=== PATIENT | male | born 1940 ===

== ENCOUNTER 2021-02-28 19:44 | Emergency (ER) | payer MEDICARE ==
[~2021-02-28 19:44] MED LIST: ASPIRIN EC81 MG PO; CRESTOR20 MG PO; FLOMAX0.4 MG PO; ISOSORBIDE DINI30 MG PO; ISOSORBIDE MONO30 MG PO; NORVASC10 MG PO; OMEPRAZOLE40 MG PO; PLAVIX75 MG PO; TOPROL XL 25MG25 MG PO
[2021-02-28 20:41] LABS: BASOPHIL 0.1 % (0-2); BILIRUBIN NEGATIVE (NEGATIVE); BLOOD NEGATIVE Ery/uL (NEGATIVE); CLARITY CLEAR (CLEAR); COLOR YELLOW (YELLOW); EOSINOPHIL 7.1 % (0-7); GLUCOSE (U) NORMAL (NORMAL); HCT 44.9 % (42.0-52.0); HGB 15.5 g/dl (13.2-18.0); LEUKOCYTES NEGATIVE Leu/uL (NEGATIVE); LYMPHOCYTE 24.4 % (15-48); MCH 31.5 pg (25.0-31.0); MCHC 34.5 g/dL (32.0-36.0); MCV 91.3 fL (78.0-100.0); MONOCYTE 10.4 % (0-12); MPV 10.3 fL (6.0-9.5); NEUTROPHIL 57.7 % (41-80); NITRITE NEGATIVE (NEGATIVE); NRBC 0; PLT 170 K/uL (150-400); PROTEIN NEGATIVE (NEGATIVE); RBC 4.92 M/uL (4.70-6.00); RDW 12.5 % (11.5-14.0); UROBILINOGEN 0.2 mg/dL (0.2-1.0); WBC 6.9 K/uL (4.0-10.5)
[2021-02-28 21:00] LABS: ALBUMIN 4.3 g/dL (3.4-5.0); BILIRUBIN - TOTAL 0.4 mg/dL (0.2-1.0); BUN/CREAT RATIO (CALC) 10.3 RATIO; CREATININE 0.87 mg/dL (0.67-1.17); GLOBULIN (CALCULATION) 2.6 g/dL; POTASSIUM 3.8 mmol/L (3.5-5.1); TOTAL PROTEIN 6.9 g/dL (6.4-8.2)
== END 2021-03-01 02:03 | disposition home or self-care (01) ==
LOC: FER 19:44
PROVIDERS: Emergency Medicine
DX: R10.9 Unspecified abdominal pain (principal); I25.10 Atherosclerotic heart disease of native coronary artery without angina pectoris; Z79.82 Long term (current) use of aspirin; Z79.02 Long term (current) use of antithrombotics/antiplatelets; Z20.822 Contact with and (suspected) exposure to COVID-19
CPT/HCPCS: 36415; 70450; 71275; 80053; 81003; 83690; 84484; 85025; 85379; 93005; J1885; J2405; J7040; Q9967; U0002